=== PATIENT | female | born 1945 | race Caucasian/White ===

== ENCOUNTER → 2016-08-03 | Outpatient (REF) | payer MEDICARE, OTHER ==
[~2016-08-03] MED LIST: /SUCR1TA OR; ACET-654 PO; ACET50TAOT PO; ASPI1TAB PO; ASPI325T; ASPI325T PO; ASPI81CH PO; ASPI81TA45 OR; ATEN25TA PO; BISAC5TA PO; CALC600T21 PO; CALCTAB22 OR; CRES20TA PO; DARV100T; DOCU10ELUD PO; FISH1000 OR; FISH300C PO; GABA-279 PO; KEPP500T4 PO; KEPP500T5 PO; LEVO25TA5 PO; LEVO25TABR OR; LIDO5DIS36 TD; MELATONIN PO; NORV5TAB PO; OMEG100011 PO; OMEP20TA7 OR; PRED5TAB; PRIL20CA; REGLAN PO; SYNT25TA PO; TEMOVATE TOP; VESI10TA PO; VIACCHW PO; VIACTIVE PO; VICO5TAB OR; VIT A; VIT D 2000 PO; VITA200016 PO; VITA500019 PO; VITAMIN D50000 UNT; VOLT1GEL24 TD; Vesicare PO; ZETI10TA2 PO; ZOFR8TAB OR; [UNRECOGNIZED DRUG - CODE] TOP
[2016-08-03 12:16] LABS: MEAN CORPUSCULAR HEMOGLOBIN 29.4 pg (27.0-33.0); MEAN CORPUSCULAR VOLUME 89.2 fl (80.0-96.0); RED CELL DISTRIBUTION WIDTH 12.3 % (11.5-14.5); WHITE BLOOD COUNT 3.9 K/mm3 (4.0-10.0)
[2016-08-03 12:30] LABS: ALBUMIN/GLOBULIN RATIO 1.43 (1.00-1.93); BILIRUBIN,TOTAL 0.8 MG/DL (0.2-1.0); CALCIUM LEVEL 9.3 MG/DL (8.8-10.2); CREATININE FOR GFR 1.08 MG/DL (0.55-1.02); GLOMERULAR FILTRATION RATE 53.2 (>39); POTASSIUM SERUM 4.5 MEQ/L (3.5-5.1); TOTAL PROTEIN 6.8 GM/DL (6.4-8.2)
== END ==
LOC: M SFHCLERA 08:55
PROVIDERS: ATTEND Family Medicine
DX: I10 Essential (primary) hypertension (principal); M60.9 Myositis, unspecified; E78.2 Mixed hyperlipidemia; E03.9 Hypothyroidism, unspecified
CPT/HCPCS: 80053; 80061; 82550; 84443; 85027; G0463

== ENCOUNTER → 2016-09-28 | Outpatient (REF) | payer MEDICARE, OTHER ==
[~2016-09-28] MED LIST changes: +TEMO0.0520 TOP; -[UNRECOGNIZED DRUG - CODE] TOP
[2016-09-28 17:15] LABS: MEAN CORPUSCULAR HEMOGLOBIN 29.5 pg (27.0-33.0); MEAN CORPUSCULAR HGB CONC 33.1 g/dl (32.0-36.5); MEAN CORPUSCULAR VOLUME 89.1 fl (80.0-96.0); RED CELL DISTRIBUTION WIDTH 12.5 % (11.5-14.5); WHITE BLOOD COUNT 4.1 K/mm3 (4.0-10.0)
[2016-09-28 17:44] LABS: CALCIUM LEVEL 8.6 MG/DL (8.8-10.2); CREATININE FOR GFR 1.1 MG/DL (0.55-1.02); GLOMERULAR FILTRATION RATE 52.1 (>39); POTASSIUM SERUM 4.3 MEQ/L (3.5-5.1)
== END ==
LOC: M SFHCLERA 11:47
PROVIDERS: ATTEND Family Medicine
DX: R25.2 Cramp and spasm (principal)
CPT/HCPCS: 80048; 82550; 83735; 85027; G0463

== ENCOUNTER → 2016-10-20 | Outpatient (REF) | payer MEDICARE, OTHER | LOC: M SFHCLERA 10:34 | PROVIDERS: ATTEND Nurse Practitioner Family | DX: J06.9 Acute upper respiratory infection, unspecified (principal) ==

== ENCOUNTER 2017-03-20 04:14 | Emergency (ER) | payer MEDICARE, OTHER ==
[~2017-03-20] VITALS: Ht 165.1 cm; Wt 63.6 kg
[~2017-03-20 04:14] MED LIST changes: -CALC600T21 PO; +CALC600T60 PO; +KEPP500T13 PO; -KEPP500T5 PO; -LIDO5DIS36 TD; +LIDO5DIS41 TD; +VOLT1GEL15 TD; -VOLT1GEL24 TD; -ZETI10TA2 PO; +ZETI10TA30 PO
[2017-03-20] MEDS ORDERED: RAMI5CA PO (04:33)
[2017-03-20] MEDS ORDERED: BENZ100C5 PO (04:33)
[2017-03-20] MEDS ORDERED: CLOP75TA2 PO (04:33)
[2017-03-20] MEDS ORDERED: ZYRT10TA2 PO (04:33)
[2017-03-20 05:41] LABS: BASO % 0.2 % (0.0-1.0); EOS # 0.1 10^3/uL (0.0-0.50); EOS % 0.9 % (0.0-3.0); IMMATURE GRANULOCYTE % 0.4 % (0-0); LYMPH # 0.7 10^3/uL (1.5-4.5); LYMPH % 5.9 % (24.0-44.0); MEAN CORPUSCULAR HEMOGLOBIN 29.5 pg (27.0-33.0); MEAN CORPUSCULAR HGB CONC 33.3 g/dl (32.0-36.5); MEAN CORPUSCULAR VOLUME 88.6 fl (80.0-96.0); MONO # 0.9 10^3/uL (0.0-0.8); MONO % 7.4 % (0.0-5.0); NEUTROPHILS # 9.8 10^3/uL (1.8-7.7); NEUTROPHILS % 85.2 % (36.0-66.0); PLATELET COUNT, AUTOMATED 167 10^3/uL (150-450); WHITE BLOOD COUNT 11.5 10^3/uL (4.0-10.0)
[2017-03-20] MEDS ORDERED: NS 1,000 ML IV ONE (05:45)
[2017-03-20 05:54] LABS: ALBUMIN 3.9 GM/DL (3.2-5.2); ALBUMIN/GLOBULIN RATIO 1.05 (1.00-1.93); BILIRUBIN,DIRECT 0.1 MG/DL (0.0-0.2); BILIRUBIN,TOTAL 0.7 MG/DL (0.2-1.0); CALCIUM LEVEL 9.3 MG/DL (8.8-10.2); CREATININE FOR GFR 1.19 MG/DL (0.55-1.02); GLOMERULAR FILTRATION RATE 47.5 (>39); POTASSIUM SERUM 3.8 MEQ/L (3.5-5.1); TOTAL PROTEIN 7.6 GM/DL (6.4-8.2)
[2017-03-20] MEDS ORDERED: BUPIVACAINE HCL 0.5% 10 ML VIAL SC ONE (06:30)
[2017-03-20] MEDS ORDERED: LIDOCAINE W/EPINEPHRINE 1% 20ML VIAL SC ONE (06:30)
[2017-03-20 07:26] VITALS: BP 119/55
--- NOTE | 2017-03-20 11:41 | REP ---
REASON: Pain after trauma. There is no AC joint comparison, however, portable examination of the chest of 05/02/2015, which showed the AC joint was reviewed. The AC joint is widened compared to the prior exam consistent with an AC joint separation possibly grade 2. This needs to be correlated clinically. There is no evidence of an acute fracture. The glenohumeral relationship is within normal limits. IMPRESSION: AC joint as described above. Signed by Jeremiah Barrios DO 03/20/2017 10:19 A
== END 2017-03-20 07:41 | disposition home or self-care (01) ==
LOC: EDBD 04:14 → M ED 04:14
DX: R55 Syncope and collapse (principal); R19.7 Diarrhea, unspecified; S01.91XA Laceration without foreign body of unspecified part of head, initial encounter; W19.XXXA Unspecified fall, initial encounter; Y92.099 Unspecified place in other non-institutional residence as the place of occurrence of the external cause; Y93.01 Activity, walking, marching and hiking; Y99.9 Unspecified external cause status; Z79.82 Long term (current) use of aspirin; Z79.899 Other long term (current) drug therapy; Z88.2 Allergy status to sulfonamides; Z88.8 Allergy status to other drugs, medicaments and biological substances; Z88.6 Allergy status to analgesic agent; Z88.5 Allergy status to narcotic agent

== ENCOUNTER → 2017-03-21 | Outpatient (REF) | payer MEDICARE, OTHER ==
[~2017-03-21] MED LIST changes: +BENZ100C5 PO; +CLOP75TA2 PO; +RAMI5CA PO; +ZYRT10TA2 PO
[2017-03-21 12:33] LABS: AMYLASE 59 U/L (25-115)
== END ==
LOC: M SFHCLERA 09:55
PROVIDERS: ATTEND Family Medicine
DX: R74.8 Abnormal levels of other serum enzymes (principal)
CPT/HCPCS: 82150; 83690; G0463

== ENCOUNTER → 2017-05-19 | Outpatient (REF) | payer MEDICARE, OTHER ==
[2017-05-19 14:22] LABS: CREATININE FOR GFR 1.07 MG/DL (0.55-1.02); FREE T4 0.99 NG/DL (0.76-1.46); GLOMERULAR FILTRATION RATE 53.7 (>39); POTASSIUM SERUM 4.5 MEQ/L (3.5-5.1)
== END ==
LOC: M SFHCLERA 09:05
PROVIDERS: ATTEND Family Medicine
DX: I12.9 Hypertensive chronic kidney disease with stage 1 through stage 4 chronic kidney disease, or unspecified chronic kidney disease (principal); N18.3 Chronic kidney disease, stage 3 (moderate)
CPT/HCPCS: 80048; 84439; 84443; G0463

== ENCOUNTER → 2017-07-04 | Outpatient (CLI) | payer MEDICARE, OTHER | LOC: M WHC 09:30 | DX: M81.0 Age-related osteoporosis without current pathological fracture (principal) | CPT/HCPCS: 77080 ==

== ENCOUNTER → 2017-12-29 | Outpatient (CLI) | payer MEDICARE, OTHER | LOC: M LRY 09:49 | DX: I10 Essential (primary) hypertension (principal); Z96.652 Presence of left artificial knee joint | CPT/HCPCS: 73590; 84443 ==

== ENCOUNTER → 2017-12-29 | Outpatient (REF) | payer MEDICARE, OTHER ==
[2017-12-29 12:54] LABS: ANION GAP 9 MEQ/L (8-16); BLOOD UREA NITROGEN 16 MG/DL (7-18); CALCIUM LEVEL 9.2 MG/DL (8.8-10.2); CARBON DIOXIDE LEVEL 28 MEQ/L (21-32); CHLORIDE LEVEL 106 MEQ/L (98-107); CREATININE FOR GFR 1.13 MG/DL (0.55-1.30); GLOMERULAR FILTRATION RATE 50.2 (>39); GLUCOSE, FASTING 83 MG/DL (70-100); POTASSIUM SERUM 4.6 MEQ/L (3.5-5.1); SODIUM LEVEL 143 MEQ/L (136-145)
== END ==
LOC: M SFHCLERA 10:05
DX: E03.9 Hypothyroidism, unspecified (principal); I10 Essential (primary) hypertension
CPT/HCPCS: 84443

== ENCOUNTER → 2018-07-04 | Outpatient (REF) | payer MEDICARE, OTHER ==
[~2018-07-04] MED LIST changes: +ACET500T15 PO; -ACET50TAOT PO; +BENZ-18 PO; -BENZ100C5 PO; +GABA-1171 PO; -GABA-279 PO; +RAMI1CAP24 PO; -RAMI5CA PO; +ZYRT10CA5 PO; -ZYRT10TA2 PO
[2018-07-04 11:28] LABS: BASO % 0.5 % (0.0-1.0); EOS # 0.1 10^3/uL (0.0-0.50); EOS % 1.2 % (0.0-3.0); HEMATOCRIT 37.7 % (36.0-47.0); HEMOGLOBIN 12.7 g/dl (12.0-15.5); LYMPH # 1.1 10^3/uL (1.5-4.5); LYMPH % 25.8 % (24.0-44.0); MEAN CORPUSCULAR HEMOGLOBIN 30.1 pg (27.0-33.0); MEAN CORPUSCULAR HGB CONC 33.7 g/dl (32.0-36.5); MEAN CORPUSCULAR VOLUME 89.3 fl (80.0-96.0); MONO # 0.5 10^3/uL (0.0-0.8); MONO % 10.6 % (0.0-5.0); NEUTROPHILS # 2.6 10^3/uL (1.8-7.7); NEUTROPHILS % 61.7 % (36.0-66.0); PLATELET COUNT, AUTOMATED 167 10^3/uL (150-450); RED BLOOD COUNT 4.22 10^6/uL (4.00-5.40); WHITE BLOOD COUNT 4.3 10^3/uL (4.0-10.0)
[2018-07-04 11:55] LABS: HEMOGLOBIN A1c 5.4 %
[2018-07-04 12:05] LABS: CALCIUM LEVEL 9.3 MG/DL (8.8-10.2); CREATININE FOR GFR 1.04 MG/DL (0.55-1.30); GLOMERULAR FILTRATION RATE 55.3 (>39); POTASSIUM SERUM 4.2 MEQ/L (3.5-5.1)
[2018-07-04 12:06] LABS: CHOLESTEROL RISK RATIO 3.029 (<5); THYROID STIMULATING HORMONE 1.32 uIU/ML (0.358-3.740)
== END ==
LOC: M SFHCLERA 09:31
PROVIDERS: ATTEND Family Medicine
DX: E78.5 Hyperlipidemia, unspecified (principal); E03.9 Hypothyroidism, unspecified; I10 Essential (primary) hypertension
CPT/HCPCS: 80048; 80061; 83036; 84443; 85025; 90732; G0009; G0463

== ENCOUNTER → 2018-09-08 | Outpatient (CLI) | payer MEDICARE, OTHER ==
--- NOTE | 2018-09-08 17:45 | REP ---
Clinical: Pain and instability. Technique: AP, lateral, bilateral oblique and sunrise views of the right knee. Findings: Moderate/early advanced tricompartmental osteoarthritic degenerative changes are appreciated. Findings include osteophytosis, joint space narrowing, subchondral sclerosis, and mild chondrocalcinosis. No acute fracture dislocation. No effusion. Impression: Moderate/early advanced tricompartmental degenerative changes. Electronically Signed by Rajendra Raymundo MD 09/08/2018 05:37 P
== END ==
LOC: M LRY 17:15
PROVIDERS: ATTEND Physician Assistant
DX: M17.11 Unilateral primary osteoarthritis, right knee (principal); M11.261 Other chondrocalcinosis, right knee; M25.361 Other instability, right knee

== ENCOUNTER → 2018-11-23 | Outpatient (CLI) | payer MEDICARE, OTHER ==
[~2018-11-23] MED LIST changes: -/SUCR1TA OR; +ASPI-1 PO; -ASPI1TAB PO; -ASPI325T PO; +ASPI81TA26 PO; -DOCU10ELUD PO; +DOCU5LIQ PO; +ONDA-227 OR; +SUCR1TAB56 OR; -ZOFR8TAB OR
--- NOTE | 2018-11-23 15:01 | REPMRS ---
Patient History The patient states she has not had a clinical breast exam in over a year. Family history of prostate cancer at age 50 or over in paternal uncle, premenopausal breast cancer at age 50 or over in sister, colorectal cancer under age 50 in paternal cousin, colorectal cancer at age 50 or over in paternal cousin. Benign lumpectomy of the right breast. Digital Woman Screen Mammo: November 23, 2018 - Exam #: [id number] Bilateral CC and MLO view(s) were taken. Technologist: Marivel Campuzano, Technologist Prior study comparison: April 29, 2016, digital woman screen mammo performed at [facility]. April 16, 2015, digital bilateral screening mammo, performed at [facility]. April 10, 2014, digital woman screen mammo performed at [facility]. FINDINGS: There are scattered fibroglandular densities. There is a moderate amount of residual fibroglandular tissue which is fairly symmetric. There is no interval development of dominant mass, architectural distortion, or clustered microcalcification typical of malignancy. There has been no change in the appearance of the mammogram from the prior studies. 3-D tomosynthesis shows no additional findings. Assessment: BI-RADS/ACR category 1 mammogram. Negative Mammogram. Recommendation Routine screening mammogram of both breasts in 1 year (for women over age 40). This patient's Lifetime Breast Cancer RIsk is estimated at 4.2 %. This mammogram was interpreted with the aid of an FDA-approved computer-aided dectection system. Electronically Signed By: Daniel Dubon MD 11/23/18 [id number]
== END ==
LOC: M WHC 07:47
PROVIDERS: ATTEND Family Medicine
DX: Z12.31 Encounter for screening mammogram for malignant neoplasm of breast (principal)

== ENCOUNTER → 2019-01-01 | Outpatient (REF) | payer MEDICARE, OTHER ==
[2019-01-01 12:29] LABS: CALCIUM LEVEL 9.5 MG/DL (8.8-10.2); CREATININE FOR GFR 1.1 MG/DL (0.55-1.30); GLOMERULAR FILTRATION RATE 51.7 (>39); POTASSIUM SERUM 4.2 MEQ/L (3.5-5.1); THYROID STIMULATING HORMONE 1.56 uIU/ML (0.358-3.740)
== END ==
LOC: M SFHCLERA 09:59
PROVIDERS: ATTEND Family Medicine
DX: E03.9 Hypothyroidism, unspecified (principal); I10 Essential (primary) hypertension
CPT/HCPCS: 80048; 84443; G0463

== ENCOUNTER → 2019-06-07 | Outpatient (REF) | payer MEDICARE, OTHER ==
[~2019-06-07] MED LIST changes: +ZETI10TA16 PO; -ZETI10TA30 PO
[2019-06-07 12:42] LABS: BASO % 0.3 % (0.0-1.0); HEMATOCRIT 41.2 % (36.0-47.0); HEMOGLOBIN 13.5 g/dl (12.0-15.5); LYMPH # 0.8 10^3/uL (1.5-5.0); LYMPH % 25.6 % (24.0-44.0); MEAN CORPUSCULAR HEMOGLOBIN 29.3 pg (27.0-33.0); MEAN CORPUSCULAR HGB CONC 32.8 g/dl (32.0-36.5); MEAN CORPUSCULAR VOLUME 89.6 fl (80.0-96.0); MONO # 0.5 10^3/uL (0.0-0.8); NEUTROPHILS # 1.8 10^3/uL (1.5-8.5); NEUTROPHILS % 57.1 % (36.0-66.0); PLATELET COUNT, AUTOMATED 149 10^3/uL (150-450); WHITE BLOOD COUNT 3.1 10^3/uL (4.0-10.0)
[2019-06-07 13:11] LABS: CALCIUM LEVEL 9.4 MG/DL (8.8-10.2); CREATININE FOR GFR 1.1 MG/DL (0.55-1.30); GLOMERULAR FILTRATION RATE 51.7 (>39); POTASSIUM SERUM 4.7 MEQ/L (3.5-5.1)
== END ==
LOC: M SFHCLERA 10:42
PROVIDERS: ATTEND Family Medicine
DX: K52.9 Noninfective gastroenteritis and colitis, unspecified (principal)
CPT/HCPCS: 80048; 85025; 87507; G0463

== ENCOUNTER → 2019-06-27 | Outpatient (CLI) | payer MEDICARE, OTHER ==
--- NOTE | 2019-06-27 14:34 | REP ---
RIGHT HIP, TWO VIEWS: Two views of the right hip are performed. There is no acute fracture or dislocation. Moderate arthritic changes are seen with diffuse moderate joint space narrowing, subchondral sclerosis and spurring. IMPRESSION: Moderate arthritic changes. Electronically Signed by Sraan Zhao MD 06/27/2019 05:39 P
== END ==
LOC: M LRY 12:26
PROVIDERS: ATTEND Family Medicine
DX: M16.11 Unilateral primary osteoarthritis, right hip (principal); R10.31 Right lower quadrant pain

== ENCOUNTER → 2019-07-18 | Outpatient (REF) | payer MEDICARE, OTHER ==
[2019-07-18 12:16] LABS: BASO % 0.7 % (0.0-1.0); EOS # 0.1 10^3/uL (0.0-0.5); EOS % 1.5 % (0.0-3.0); HEMATOCRIT 36.9 % (36.0-47.0); HEMOGLOBIN 12.2 g/dl (12.0-15.5); LYMPH # 1.1 10^3/uL (1.5-5.0); LYMPH % 27.7 % (24.0-44.0); MEAN CORPUSCULAR HGB CONC 33.1 g/dl (32.0-36.5); MEAN CORPUSCULAR VOLUME 90.7 fl (80.0-96.0); MONO # 0.4 10^3/uL (0.0-0.8); NEUTROPHILS # 2.4 10^3/uL (1.5-8.5); NEUTROPHILS % 59.9 % (36.0-66.0); PLATELET COUNT, AUTOMATED 181 10^3/uL (150-450); RED BLOOD COUNT 4.07 10^6/uL (4.00-5.40); WHITE BLOOD COUNT 4.1 10^3/uL (4.0-10.0)
[2019-07-18 12:30] LABS: ALBUMIN 3.8 GM/DL (3.2-5.2); BILIRUBIN,TOTAL 0.8 MG/DL (0.2-1.0); CALCIUM LEVEL 9.4 MG/DL (8.8-10.2); CREATININE FOR GFR 1.15 MG/DL (0.55-1.30); GLOMERULAR FILTRATION RATE 49.1 (>39); POTASSIUM SERUM 4.6 MEQ/L (3.5-5.1); THYROID STIMULATING HORMONE 1.91 uIU/ML (0.358-3.740); TOTAL PROTEIN 6.6 GM/DL (6.4-8.2)
== END ==
LOC: M SFHCLERA 07:49
PROVIDERS: ATTEND Family Medicine
DX: I10 Essential (primary) hypertension (principal); E03.9 Hypothyroidism, unspecified

== ENCOUNTER → 2019-12-04 | Outpatient (CLI) | payer MEDICARE, OTHER ==
[~2019-12-04] MED LIST changes: +ASPI81TA85 PO; +D 50CAP2 PO; +MS C15TA8 PO; +ONDA-83 PO; +PERC5TAB12 PO; +TESS100C PO; +VITATAB73 PO; +ZYRTTAB8 PO
[2019-12-04 11:27] LABS: BASO % 0.5 % (0.0-1.0); EOS % 0.5 % (0.0-3.0); HEMATOCRIT 39.3 % (36.0-47.0); LYMPH % 24.4 % (24.0-44.0); MEAN CORPUSCULAR HEMOGLOBIN 29.3 pg (27.0-33.0); MEAN CORPUSCULAR HGB CONC 33.1 g/dl (32.0-36.5); MEAN CORPUSCULAR VOLUME 88.7 fl (80.0-96.0); MONO # 0.4 10^3/uL (0.0-0.8); NEUTROPHILS # 2.7 10^3/uL (1.5-8.5); NEUTROPHILS % 65.6 % (36.0-66.0); PLATELET COUNT, AUTOMATED 191 10^3/uL (150-450); RED BLOOD COUNT 4.43 10^6/uL (4.00-5.40); WHITE BLOOD COUNT 4.1 10^3/uL (4.0-10.0)
[2019-12-04 11:45] LABS: INR 0.95; PROTHROMBIN TIME 12.4 SECONDS (11.8-14.0)
[2019-12-04 11:58] LABS: ALBUMIN 4.1 GM/DL (3.2-5.2); CALCIUM LEVEL 10.4 MG/DL (8.8-10.2); CREATININE FOR GFR 1.12 MG/DL (0.55-1.30); GLOMERULAR FILTRATION RATE 50.5 (>39); POTASSIUM SERUM 3.9 MEQ/L (3.5-5.1); TOTAL PROTEIN 7.7 GM/DL (6.4-8.2)
[2019-12-04 11:59] LABS: ERYTHROCYTE SEDIMENTATION RATE 9 mm/hr (0-30)
--- NOTE | 2019-12-04 14:44 | REP ---
REASON: Preoperative evaluation. The latest prior for comparison is a single view of the chest obtained 05/02/2015 portably. FINDINGS: The superior mediastinal structures are midline. The cardiac silhouette is unremarkable in size, shape, and position. The diaphragmatic surfaces of the lungs are regular, and the costophrenic angles are clear. The pulmonary valadez are clear. The imaged osseous structures are intact. IMPRESSION: There is no acute cardiopulmonary disease. Electronically Signed by Jeremiah Barrios DO 12/04/2019 05:27 P
== END ==
LOC: M LAB 10:31
PROVIDERS: ATTEND Family Medicine
DX: Z01.818 Encounter for other preprocedural examination (principal); M17.11 Unilateral primary osteoarthritis, right knee; Z79.01 Long term (current) use of anticoagulants
CPT/HCPCS: 36415; 71046; 80053; 85025; 85610; 85652; 93005; G0463

== ENCOUNTER → 2019-12-16 | Outpatient (CLI) | payer MEDICARE, OTHER ==
[~2019-12-16] MED LIST changes: -ASPI81TA85 PO; +ASPI81TA86 PO
== END ==
LOC: M LABSMTC 10:39
PROVIDERS: ATTEND Anesthesiology
DX: Z01.818 Encounter for other preprocedural examination (principal); Z11.59 Encounter for screening for other viral diseases

== ENCOUNTER 2019-12-19 10:33 | Inpatient (IN) | payer MEDICARE, OTHER ==
--- NOTE | 2019-12-11 17:14 | HPE ---
DATE OF ANTICIPATED ADMISSION: 12/19/2019 ATTENDING PHYSICIAN: Dr. Santosh Tolbert CHIEF COMPLAINT: Right knee pain and stiffness. HISTORY: The patient is a pleasant 74-year-old female with progressively worsening right knee pain and stiffness. She failed to improve with conservative measures. She continues to have symptoms with weightbearing activities and activities of daily living. She has consented for an elective right total knee arthroplasty with Dr. Tolbert for her continued symptoms. Medical optimization pending with Dr. Briscoe. CURRENT MEDICATIONS: - amlodipine 5 mg daily - aspirin 81 mg daily - Zyrtec 10 mg daily - Plavix 75 mg daily - ramipril 5 mg daily - Synthroid 25 mcg daily - Tylenol 500 mg daily - vitamin D 2000 units twice daily - Voltaren gel as needed - Zetia 10 mg daily - Zofran 4 mg every 8 hours as needed for nausea - Keppra 500 mg twice daily - calcium with vitamin D - heartburn relief medication ALLERGIES: CELEBREX, FLEXERIL, IBUPROFEN, SULFA DRUGS, TRAMADOL, VIOXX, CRESTOR, PRAVASTATIN, PLAQUENIL, ACTONEL. CHRONIC MEDICAL CONDITIONS: Hypertension. Hyperlipidemia. Hypothyroid. Gastroesophageal reflux disease. Seasonal allergies. Seizures. Heart disease. PAST SURGICAL HISTORY: Tubal ligation. Heart catheterization. Left total knee arthroplasty. Right knee arthroscopy. Cholecystectomy. Colonoscopy. SOCIAL HISTORY: The patient is a former smoker and quit greater than 20 years ago. She denies any alcohol use. REVIEW OF SYSTEMS: The patient denies fevers, chills, nausea, vomiting, or diarrhea. She denies chest pain, shortness of breath, lightheadedness, dizziness, or headaches. She denies any recent upper respiratory or urinary tract infection symptoms. She denies any abdominal pain. She does continue to have right knee pain with weightbearing activities and activities of daily living. PHYSICAL EXAM: General: Well-nourished, well-developed female in no apparent distress. She is alert, oriented, and cooperative. Mood and affect are appropriate. Vital signs: Height 65 inches, weight 134 pounds, temperature 98.2, heart rate 64, respirations 14, blood pressure 116/60. Neck: Supple without lymphadenopathy. Heart: Regular rate and rhythm. Lungs: Clear to auscultation bilaterally. Abdomen: Soft and nontender to palpation. Bowel sounds are present. Musculoskeletal: Right knee exhibits no erythema, edema, or ecchymosis. Skin is intact. She can extend knee to 2 degrees and flex to 120 degrees. Right lower extremity strength is 5/5. No hip irritability elicited with range of motion testing. The patient's calf is soft, nontender to palpation with no palpable cords noted. She is neurovascularly intact distally. LABORATORY DATA: Chest x-ray: No acute cardiopulmonary disease. Right knee x-ray: Notable for end-stage degenerative changes. Comprehensive metabolic profile: Fasting glucose elevated at 102, BUN 16, creatinine 1.12, GFR 50.2, sodium 138, potassium 3.9, chloride 105, carbon dioxide 29, anion gap decreased at 4, calcium elevated at 10.4, AST 23, ALT 20, alkaline phosphatase 83, total bilirubin 1, total protein 7.7, albumin 4.1, albumin-globulin ratio decreased at 1.1. Prothrombin time 12.4, INR 0.95. Complete blood count: WBC is 4.1, RBCs 4.43, hemoglobin 13, hematocrit 39.3, platelets 191, erythrocyte sedimentation rate is 9. IMPRESSION: Right knee degenerative arthritis with x-rays notable for end-stage degenerative changes. PLAN: The patient has consented for an elective right total knee arthroplasty with Dr. Tolbert for her continued symptoms. Medical optimization pending with Dr. Briscoe. The patient will start using her Bactroban and Hibiclens 5 days prior to surgery as directed. She will call [facility] the day before her surgery to get a report time. She will follow her primary child care leader's recommendations for taking daily medications and when to stop anticoagulants. The patient will be nothing by mouth after midnight prior to surgery and was directed to take a medication by her primary child care leader with a small sip of water the morning of.
[~2019-12-19] VITALS: Ht 162.6 cm; Wt 62.1 kg
[2019-12-19] MEDS: amLODIPine 5 MG TAB PO SCH (09:00)
[~2019-12-19 10:33] MED LIST changes: +ACETAMINOPHEN 500 MG TAB PO ONE; +ASPI81TA85 PO; -ASPI81TA86 PO; +LIDOCAINE 1% MDV 20ML VIAL SQ PRN; +LR 1,000 ML IV ONE; +MIDAZOLAM INJ 2MG/2ML VIAL (J2250 PER 1MG) IV SCH; -MS C15TA8 PO; -PERC5TAB12 PO; +ceFAZolin SOD 2 GM in IV 1 EA IV ONE
[2019-12-19] MEDS ORDERED: propofoL 500 MG/50 ML VIAL As Ordered ONE (13:22)
[2019-12-19] MEDS ORDERED: LIDOCAINE 2% 100MG/5ML SDV (FOR ANES.) As Ordered ONE (13:23)
[2019-12-19] MEDS ORDERED: fentaNYL 100 MCG/2 ML INJECTION (J3010) As Ordered ONE (13:57)
[2019-12-19] MEDS ORDERED: ceFAZolin 1GM VIAL (J0690 PER 500MG) As Ordered ONE (13:57)
[2019-12-19] MEDS ORDERED: MIDAZOLAM INJ 2MG/2ML VIAL (J2250 PER 1MG) As Ordered ONE (13:57)
[2019-12-19] MEDS ORDERED: EPINEPHrine INJ 1 MG/ML 1ML AMP As Ordered ONE (13:58)
[2019-12-19] MEDS ORDERED: BUPIVACAINE LIPOSOME/PF 1.3% 20ML VIAL (13.3MG/ML)(EXPAREL)(C9290 PER1MG) As Ordered ONE (13:58)
[2019-12-19] MEDS ORDERED: TRANEXAMIC ACID 100 MG/ML 10ML VIAL As Ordered ONE (13:58)
[2019-12-19] MEDS ORDERED: BUPIVACAINE HCL 0.25% 10ML VIAL As Ordered ONE (13:58)
[2019-12-19] MEDS: fentaNYL 100 MCG/2 ML INJECTION (J3010) IV SCH ×2 (14:17→14:21)
--- NOTE | 2019-12-19 15:25 | CR.PDOC ---
General Date of Consultation: Dec 19, 2019 Consultation REASON FOR CONSULTATION/CHIEF COMPLAINT: Who presented to [facility] for an elective orthopedic procedure. Medical management HISTORY OF PRESENT ILLNESS: Patient is a 74 year old female with a PMHx of HTN, DLP, Hypothyroidism, Seasonal allergies, Seizures History, GERD who presented to [facility] for an elective orthopedic procedure. Patient received medical clearance from Dr. Briscoe, primary care provider. Patient was seen pre-operatively. She does not experience any headache, nausea, vomiting, chest pain, SOB, palpitations, abdominal pain, constipation, diarrhea or urinary discomfort. Has not experienced any recent fevers / chills. Reports no changes in appetite / weight. ALLERGIES: Please see below. HOME MEDICATIONS: Please see below. PAST MEDICAL HISTORY: HTN, DLP, Hypothyroidism, Seasonal allergies, Seizures History, GERD PAST SURGICAL HISTORY: Tubal ligation Heart catheterization (2002) Left total knee arthroplasty (2007) Cholecystectomy Colonoscopy x2 FAMILY HISTORY: - Family history reviewed and non-contributory to this this hospitalization SOCIAL HISTORY: - Denies the use of alcohol or illicit drugs; reports she quit smoking 20 years ago - Denies recent travel or sick contacts - Lives with daughter - Occupation; [employer] REVIEW OF SYSTEMS: 10 point review of systems complete, all negative otherwise stated in HPI PHYSICAL EXAMINATION: - Vitals: BP 133/63, HR 77, RR 18, Sat 100%NC2L, Temp 97.1F - General: Lying in bed, Appears comfortable, AAOx3 - HEENT: NC, AT, PERRLA, EOMI - CVS: RRR, +S1S2 - Lungs: Fair air entry bilaterally, No appreciable wheezing / rales / rhonchi - Abdomen: Soft, Non-distended, Non-tender - Extremities: No lower extremity edema, No calf tenderness - Neuro: No focal motor or sensory deficit - Skin: No visible rashes LABORATORY DATA: Please see below. ASSESSMENT/PLAN: Elective right knee arthroplasty - Patient has presented to [facility] for an elective procedure with orthopedic surgery - Has received outpatient medical clearance from primary care provider - Pain control, anticoagulation, and physical therapy at the direction of physical therapy HTN - BP controlled - Will resume amlodipine and Ramipril with holding parameters DLP - c/w Ezetimibe Hypothyroidism - c/w Levothyroxine Seasonal allergies - c/w Cetirizine PRN Seizures History - Patient reports last seizure was 2013 - c/w Keppra OA / Neuropathy - c/w Gabapentin GERD - Patient takes calcium carbonate PRN DVT prophylaxis - Will c/w anticoagulation as per orthopedic surgery Vital Signs/I&O Vital Signs Date Time Temp Pulse Resp B/P (MAP) Pulse Ox O2 Delivery O2 Flow Rate FiO2 12/19/19 14:30 77 18 133/63 (86) 100 Nasal Cannula 3 12/19/19 11:26 97.1 Allergies Coded Allergies: Sulfa (Sulfonamide Antibiotics) (Verified Allergy, Intermediate, rash, 12/19/19) hydroxychloroquine (Verified Allergy, Unknown, 12/19/19) rosuvastatin (Verified Allergy, Unknown, 12/19/19) celecoxib (Verified Adverse Reaction, Intermediate, increased BP, 12/19/19) cyclobenzaprine (Verified Adverse Reaction, Intermediate, seizure, 12/19/19) ibuprofen (Verified Adverse Reaction, Intermediate, palpitations, 12/19/19) risedronate sodium (Verified Adverse Reaction, Intermediate, severe leg pain, 12/19/19) rofecoxib (Verified Adverse Reaction, Intermediate, increased BP, 12/19/19) tramadol (Verified Adverse Reaction, Intermediate, seizure, 12/19/19) Home Medications Scheduled Amlodipine Besylate (Norvasc) 5 Mg Tab, 5 MG PO DAILY, (Reported) Aspirin (Aspir 81) 81 Mg Tablet.dr, 81 MG PO DAILY, #30 (Reported) Calcium Carbonate (Calcium) 600 Mg Tab, 600 MG PO DAILY, (Reported) Cholecalciferol (Vitamin D3) (Vitamin D3) 125 Mcg Capsule, 125 MCG PO DAILY, (Re ported) Clopidogrel Bisulfate (Clopidogrel) 75 Mg Tab, 75 MG PO DAILY, (Reported) Ezetimibe (Zetia) 10 Mg Tab, 10 MG PO QPM, (Reported) Levetiracetam (Keppra Xr) 500 Mg Tab, 500 MG PO BID, (Reported) Levothyroxine Sodium (Levothyroxine Sodium) 25 Mcg Tab, 25 MCG PO QAM, (Reported) Ramipril (Ramipril) 5 Mg Cap, 5 MG PO DAILY, (Reported) Vitamin B Complex (Vitamin B Complex) 1 Each Tablet, 1 TAB PO DAILY, (Reported) Scheduled PRN Acetaminophen (Acetaminophen) 500 Mg Tab, 500 MG PO for PAIN, (Reported) Cetirizine HCl/Pseudoephedrine (Zyrtec-D Tablet) 1 Each Tab.er.12h, 1 TAB PO for CONGESTION, (Reported) Gabapentin (Gabapentin) 100 Mg Cap, 100 MG PO TID PRN for PAIN, (Reported) Ondansetron HCl (Ondansetron HCl) 4 Mg Tablet, 4 MG PO Q4H PRN for NAUSEA OR VOMITING for 5 Days, #30 (Reported) JEFFREY DENT MD Dec 19, 2019 15:25
[2019-12-19] MEDS ORDERED: ACETAMINOPHEN 1000MG 100ML IV BTL (OFIRMEV) (J0131 PER 10MG) As Ordered ONE (16:17)
[2019-12-19] MEDS ORDERED: ONDANSETRON 4MG/2ML VIAL As Ordered ONE (16:17)
[2019-12-19] MEDS ORDERED: KETOROLAC 60MG 2ML VIAL As Ordered ONE (16:17)
[2019-12-19] MEDS ORDERED: LR 1,000 ML IV SCH ×2 (18:00)
[2019-12-19] MEDS ORDERED: MORPHINE 2 MG/ML 1ML VIAL (J2270) IV PRN (18:00)
[2019-12-19] MEDS ORDERED: ONDANSETRON 4MG/2ML VIAL IV PRN ×2 (18:00)
[2019-12-19] MEDS ORDERED: oxyCODONE 5MG TAB PO PRN (18:00)
[2019-12-19] MEDS ORDERED: METOCLOPRAMIDE INJ 10MG/2ML VIAL (J2765 PER 1) IV PRN (18:00)
[2019-12-19] MEDS ORDERED: ACETAMINOPHEN TAB 650MG DOSE (2X325MG) PO PRN (18:00)
[2019-12-19] MEDS ORDERED: fentaNYL 100 MCG/2 ML INJECTION (J3010) IV PRN (18:00)
[2019-12-19] MEDS ORDERED: PERCOCET 5MG/325MG TAB PO PRN (18:00)
[2019-12-19] MEDS ORDERED: ROPIvacaine 0.5% 30ML INJECTION (J2795 PER 1MG) ONE ×2 (19:19→19:24)
[2019-12-19] MEDS ORDERED: EPINEPHrine INJ 1 MG/ML 1ML AMP ONE ×2 (19:19→19:24)
[2019-12-19] MEDS ORDERED: dexameTHASONE 10MG/1ML VIAL PRES.FREE (J1100 PER 1MG) ONE ×2 (19:19→19:24)
--- NOTE | 2019-12-19 20:10 | REP ---
Two views right knee: 12/19/2019. Indication: Postoperative assessment. Findings: The patient is status post immediate postoperative total knee arthroplasties sequelae. The surgical hardware appears intact and well seated. No lytic or blastic lesions are present. Postoperative soft tissue sequelae are noted. Impression: Expected postoperative sequelae of following total right knee arthroplasty. Electronically Signed by Kendrick Chirinos DO 12/19/2019 08:01 P
[2019-12-19 20:46] VITALS: BP 132/69
[2019-12-19 21:30] VITALS: BP 132/68
[2019-12-19 22:30] VITALS: BP 134/68
[2019-12-19] MEDS: levETIRAcetam **XR** 500 MG TABLET PO SCH (23:19)
[2019-12-19] MEDS: EZETIMIBE 10 MG TAB (ZETIA) PO SCH (23:19)
[2019-12-19] MEDS: PERCOCET 5MG/325MG TAB PO PRN (23:20)
[2019-12-19] MEDS: ceFAZolin SOD 2 GM in IV 1 EA IV SCH (23:20)
[2019-12-19 23:29] VITALS: BP 128/70
[2019-12-20 00:30] VITALS: BP 126/71
[2019-12-20 05:47] VITALS: BP 110/58
[2019-12-20] MEDS: PERCOCET 5MG/325MG TAB PO PRN ×4 (06:03→21:52)
[2019-12-20] MEDS: LEVOTHYROXINE 25MCG TABLET (0.025MG) PO SCH (06:03)
[2019-12-20 07:03] LABS: BASO % 0.1 % (0.0-1.0); HEMATOCRIT 32.2 % (36.0-47.0); HEMOGLOBIN 10.8 g/dl (12.0-15.5); LYMPH # 0.5 10^3/uL (1.5-5.0); LYMPH % 4.9 % (24.0-44.0); MEAN CORPUSCULAR HEMOGLOBIN 29.6 pg (27.0-33.0); MEAN CORPUSCULAR HGB CONC 33.5 g/dl (32.0-36.5); MEAN CORPUSCULAR VOLUME 88.2 fl (80.0-96.0); MONO # 0.7 10^3/uL (0.0-0.8); MONO % 7.2 % (0.0-5.0); NEUTROPHILS # 8.9 10^3/uL (1.5-8.5); NEUTROPHILS % 87.3 % (36.0-66.0); PLATELET COUNT, AUTOMATED 158 10^3/uL (150-450); RED BLOOD COUNT 3.65 10^6/uL (4.00-5.40); WHITE BLOOD COUNT 10.2 10^3/uL (4.0-10.0)
[2019-12-20] MEDS ORDERED: PERC5TAB12 PO (07:23)
[2019-12-20] MEDS ORDERED: PERCOCET 5MG/325MG TAB PO ONE (07:30)
[2019-12-20 07:34] LABS: ALBUMIN 3.3 GM/DL (3.2-5.2); BILIRUBIN,TOTAL 0.6 MG/DL (0.2-1.0); CALCIUM LEVEL 8.5 MG/DL (8.8-10.2); CREATININE FOR GFR 1.33 MG/DL (0.55-1.30); GLOMERULAR FILTRATION RATE 41.4 (>39); MAGNESIUM LEVEL 1.6 MG/DL (1.8-2.4); TOTAL PROTEIN 6.2 GM/DL (6.4-8.2)
[2019-12-20] MEDS: MIRALAX *UNIT DOSE* 17GM PACKET PO SCH (07:58)
[2019-12-20] MEDS: ramipriL 5 MG CAP PO SCH ×3 (07:59→08:15)
[2019-12-20] MEDS: levETIRAcetam **XR** 500 MG TABLET PO SCH ×2 (07:59→21:52)
[2019-12-20] MEDS: MOM 30ML SUSPENSION UDC PO SCH (07:59)
[2019-12-20] MEDS: ASPIRIN 81 MG CHEW TABLET PO SCH (07:59)
[2019-12-20] MEDS: GABAPENTIN 100 MG CAP PO PRN ×2 (08:01→17:08)
[2019-12-20] MEDS: CLOPIDOGREL 75 MG TAB PO SCH (08:01)
[2019-12-20] MEDS: ceFAZolin SOD 2 GM in IV 1 EA IV SCH ×2 (08:02→17:08)
[2019-12-20] MEDS: amLODIPine 5 MG TAB PO SCH ×2 (08:10→08:15)
[2019-12-20 10:00] VITALS: BP 110/58
[2019-12-20] MEDS ORDERED: MAG SULF 1GM/100ML (MAG RUN) 1 GM in IV 1 EA IV ONE (11:00)
--- NOTE | 2019-12-20 11:21 | IPNPDOC ---
Text Note Date of Service The patient was seen on 12/20/19. NOTE Subjective: Patient is a 74 year old female with a PMHx of HTN, DLP, Hypothyroidism, Seasonal allergies, Seizures History, GERD who presented to [facility] for an elective orthopedic procedure. Patient received medical clearance from Dr. Briscoe, primary care provider. Patient was seen and examined at the bedside. Patient appears to be comfortable, will be working with physical therapy, however , did note that today her pain was uncontrolled. Denies any nausea, vomiting, abdominal pain, diarrhea, or urinary discomfort. Objective: Vitals (See below) General: Lying in bed, appears comfortable, AAOx3 HEENT: NC, AT CVS: +S1S2 Lungs: Fair air entry b/l, -w/r/r Abdomen: Soft, ND, NT Extremities: - Edema, - Calf tenderness Assessment and plan: Elective right knee arthroplasty (POD#1) - Patient has presented to [facility] for an elective procedure with orthopedic surgery - Has received outpatient medical clearance from primary care provider - Pain control, anticoagulation, and physical therapy at the direction of physical therapy HTN - BP controlled - c/w Amlodipine and Ramipril with holding parameters DLP - c/w Ezetimibe Hypothyroidism - c/w Levothyroxine Seasonal allergies - c/w Cetirizine PRN Seizures History - Patient reports last seizure was 2013 - c/w Keppra OA / Neuropathy - c/w Gabapentin GERD - Patient takes calcium carbonate PRN DVT prophylaxis - c/w anticoagulation as per orthopedic surgery Disposition: - c/w PT and OT - Anticipate DC tomorrow VS,Humbertobone, I+O VS, Fishbone, I+O Laboratory Tests 12/20/19 06:43 Vital Signs Date Time Temp Pulse Resp B/P (MAP) Pulse Ox O2 Delivery O2 Flow Rate FiO2 12/20/19 08:15 110/58 12/20/19 08:15 60 12/20/19 08:00 20 Room Air 12/20/19 05:47 98.0 99 12/19/19 15:20 3 I&O- Last 24 Hours up to 6 AM 12/20/19 06:00 Intake Total 1850 ml Output Total 220 ml Balance 1630 ml JEFFREY DENT MD Dec 20, 2019 11:21
[2019-12-20] MEDS ORDERED: PERCOCET 5MG/325MG TAB PO PRN (11:30)
[2019-12-20 14:00] VITALS: BP 86/54
[2019-12-20 18:00] VITALS: BP 109/57
[2019-12-20] MEDS: MORPHINE 15 MG SA TAB PO SCH (18:31)
[2019-12-20] MEDS: EZETIMIBE 10 MG TAB (ZETIA) PO SCH (21:51)
[2019-12-20 22:00] VITALS: BP 117/59
[2019-12-21] MEDS: LEVOTHYROXINE 25MCG TABLET (0.025MG) PO SCH (05:40)
[2019-12-21] MEDS: PERCOCET 5MG/325MG TAB PO PRN ×2 (05:40→11:13)
[2019-12-21 06:00] VITALS: BP 137/63
[2019-12-21] MEDS ORDERED: MS C15TA8 PO (06:13)
[2019-12-21] MEDS: MOM 30ML SUSPENSION UDC PO SCH (08:05)
[2019-12-21] MEDS: MIRALAX *UNIT DOSE* 17GM PACKET PO SCH (08:05)
[2019-12-21] MEDS: MORPHINE 15 MG SA TAB PO SCH (08:06)
[2019-12-21] MEDS: levETIRAcetam **XR** 500 MG TABLET PO SCH (08:06)
[2019-12-21 08:07] VITALS: BP 137/63
[2019-12-21] MEDS: ASPIRIN 81 MG CHEW TABLET PO SCH (08:07)
[2019-12-21] MEDS: amLODIPine 5 MG TAB PO SCH (08:07)
[2019-12-21] MEDS: ramipriL 5 MG CAP PO SCH (08:07)
[2019-12-21] MEDS: CLOPIDOGREL 75 MG TAB PO SCH (08:09)
[2019-12-21 08:28] LABS: BASO % 0.1 % (0.0-1.0); EOS % 0.1 % (0.0-3.0); HEMATOCRIT 30.7 % (36.0-47.0); HEMOGLOBIN 10.2 g/dl (12.0-15.5); LYMPH # 0.9 10^3/uL (1.5-5.0); LYMPH % 10.3 % (24.0-44.0); MEAN CORPUSCULAR HEMOGLOBIN 29.4 pg (27.0-33.0); MEAN CORPUSCULAR HGB CONC 33.2 g/dl (32.0-36.5); MEAN CORPUSCULAR VOLUME 88.5 fl (80.0-96.0); MONO # 1.1 10^3/uL (0.0-0.8); MONO % 12.4 % (0.0-5.0); NEUTROPHILS # 6.6 10^3/uL (1.5-8.5); NEUTROPHILS % 76.8 % (36.0-66.0); PLATELET COUNT, AUTOMATED 141 10^3/uL (150-450); RED BLOOD COUNT 3.47 10^6/uL (4.00-5.40); WHITE BLOOD COUNT 8.7 10^3/uL (4.0-10.0)
[2019-12-21 09:01] LABS: BILIRUBIN,TOTAL 0.6 MG/DL (0.2-1.0); CALCIUM LEVEL 7.8 MG/DL (8.8-10.2); CREATININE FOR GFR 1.1 MG/DL (0.55-1.30); GLOMERULAR FILTRATION RATE 51.5 (>39); MAGNESIUM LEVEL 1.9 MG/DL (1.8-2.4); POTASSIUM SERUM 3.8 MEQ/L (3.5-5.1); TOTAL PROTEIN 5.8 GM/DL (6.4-8.2)
[2019-12-21 10:00] VITALS: BP 132/65
--- NOTE | 2019-12-21 10:25 | IPNPDOC ---
Text Note Date of Service The patient was seen on 12/21/19. NOTE Subjective: Patient is a 74 year old female with a PMHx of HTN, DLP, Hypothyroidism, Seasonal allergies, Seizures History, GERD who presented to [facility] for an elective orthopedic procedure. Patient received medical clearance from Dr. Briscoe, primary care provider. Patient was seen and examined at the bedside. Patient reported that she still experiencing right leg pain. Denies any chest pain, shortness of breath or palpitations. Denies nausea, vomiting, abdominal pain, diarrhea, or urinary discomfort. Patient will continue to work with physical therapy until she is cleared for discharge. Objective: Vitals (See below) General: Lying in bed, remains comfortable in bed, is awake, alert and oriented 3 HEENT: NC, AT CVS: +S1S2 Lungs: Fair air entry b/l, no appreciable wheezing, rhonchi or crackles Abdomen: Soft, nondistended and nontender Extremities: Large tremors are free of any edema, - Calf tenderness Assessment and plan: Elective right knee arthroplasty (POD#2) - Patient has presented to [facility] for an elective procedure with orthopedic surgery - Has received outpatient medical clearance from primary care provider - Pain control, anticoagulation, and physical therapy at the direction of physical therapy HTN - BP controlled - c/w Amlodipine and Ramipril with holding parameters DLP - c/w Ezetimibe Hypothyroidism - c/w Levothyroxine Seasonal allergies - c/w Cetirizine PRN Seizures History - Patient reports last seizure was 2013 - c/w Keppra OA / Neuropathy - c/w Gabapentin GERD - Patient takes calcium carbonate PRN DVT prophylaxis - c/w anticoagulation as per orthopedic surgery Disposition: - c/w PT and OT; has yet to clear VS,Fishbone, I+O VS, Fishbone, I+O Laboratory Tests 12/21/19 08:05 Vital Signs Date Time Temp Pulse Resp B/P (MAP) Pulse Ox O2 Delivery O2 Flow Rate FiO2 12/21/19 08:07 137/63 12/21/19 08:07 69 12/21/19 08:06 18 Room Air 12/21/19 06:00 98.1 95 12/19/19 15:20 3 I&O- Last 24 Hours up to 6 AM 12/21/19 06:00 Intake Total 2060 ml Output Total 500 ml Balance 1560 ml JEFFREY DENT MD Dec 21, 2019 10:25
--- NOTE | 2019-12-24 17:35 | DSES ---
DATE OF ADMISSION: 12/19/2019 DATE OF DISCHARGE: 12/21/2019 HISTORY OF PRESENT ILLNESS: Patricia is a pleasant 74-year-old female with progressively worsening right knee pain and stiffness. She consented for a right total knee arthroplasty per Dr. Santosh Tolbert. Her medical optimization was completed by Dr. Briscoe. X-rays were consistent with advanced osteoarthritis. OPERATION PERFORMED: Right total knee arthroplasty. HOSPITAL COURSE: The patient uneventfully underwent right total knee arthroplasty under spinal and MAC anesthesia. The patient tolerated the procedure well and was returned to recovery comfortable. Our hospital team felt the patient was ready for discharge on 12/21/2019 with the following instructions. Weightbearing as tolerated with walker, Percocet as needed for pain, diet is regular, ODALYS stockings wear times 30 days with anticoagulation per protocol. INSTRUCTIONS: Optifoam dressing change in 3-4 days time. The patient will followup with the orthopedic group 12-14 days for wound check, staple removal. She is encouraged to contact our office sooner with increased pain, numbness, tingling, drainage, bleeding, fever greater than 101 or any further concerns.
== END 2019-12-21 12:25 | disposition home or self-care (01) | DRG 470 ==
LOC: M OR 10:33 → M MS5PR 18:40
PROVIDERS: ADMIT Orthopaedic Surgery; ATTEND Orthopaedic Surgery
PROC: 0SRC0J9 Replacement of Right Knee Joint with Synthetic Substitute, Cemented, Open Approach (ICD-10-PCS; principal; 2019-12-19 14:45)
DX: M17.11 Unilateral primary osteoarthritis, right knee (principal); Z11.59 Encounter for screening for other viral diseases; E78.5 Hyperlipidemia, unspecified; I10 Essential (primary) hypertension; K21.9 Gastro-esophageal reflux disease without esophagitis; E03.9 Hypothyroidism, unspecified; Z96.652 Presence of left artificial knee joint; Z79.82 Long term (current) use of aspirin; Z79.899 Other long term (current) drug therapy; Z87.891 Personal history of nicotine dependence; G62.9 Polyneuropathy, unspecified; Z88.2 Allergy status to sulfonamides; Z88.5 Allergy status to narcotic agent; Z88.8 Allergy status to other drugs, medicaments and biological substances; Z88.6 Allergy status to analgesic agent; G40.909 Epilepsy, unspecified, not intractable, without status epilepticus

== ENCOUNTER → 2020-01-03 | Outpatient (CLI) | payer MEDICARE, OTHER ==
[~2020-01-03] MED LIST changes: -ACETAMINOPHEN 500 MG TAB PO ONE; -ASPI81TA85 PO; +ASPI81TA86 PO; -LIDOCAINE 1% MDV 20ML VIAL SQ PRN; -LR 1,000 ML IV ONE; -MIDAZOLAM INJ 2MG/2ML VIAL (J2250 PER 1MG) IV SCH; +MS C15TA8 PO; +PERC5TAB12 PO; -ceFAZolin SOD 2 GM in IV 1 EA IV ONE
--- NOTE | 2020-01-03 10:49 | REP ---
Clinical: Right wrist pain and swelling. Technique: AP, lateral, bilateral oblique views of the right wrist. Findings: Moderate osteoarthritic degenerative changes include cortical irregularity, subchondral sclerosis and joint space narrowing primarily involving the first and second carpometacarpal joints as well as the radiocarpal line. Moderate chondrocalcinosis along the radiocarpal joint and within the prestyloid recess is also appreciated. No acute fracture or dislocation. Impression: Moderate osteoarthritic degenerative changes including elements of chondrocalcinosis and soft tissue swelling. Electronically Signed by Rajendra Raymundo MD 01/03/2020 10:39 A
--- NOTE | 2020-01-03 10:50 | REP ---
Clinical: Pain. Technique: AP, lateral, bilateral oblique views of the right hand. Findings: Moderate to significant osteoarthritic degenerative changes primarily involving the interphalangeal joints and specifically the 3-5th proximal interphalangeal joints. Findings include gull-wing deformities, subchondral heterogeneity and subtle cystic changes, marginal spurring/osteophytosis and periarticular soft tissue swelling. No acute fracture dislocation. Moderate arthritic degenerative changes are also noted through the wrist including elements of chondrocalcinosis in the radiocarpal joint space and pre-styloid space. Impression: Moderate to early significant osteoarthritic degenerative changes. Electronically Signed by Rajendra Raymundo MD 01/03/2020 10:42 A
== END ==
LOC: M LRY 09:56
PROVIDERS: ATTEND Family Medicine
DX: M19.041 Primary osteoarthritis, right hand (principal); M19.031 Primary osteoarthritis, right wrist
CPT/HCPCS: 73110; 73130; G0463

== ENCOUNTER → 2020-04-21 | Outpatient (CLI) | payer MEDICARE, OTHER ==
[2020-04-21 10:31] LABS: BASO % 0.7 % (0.0-1.0); EOS # 0.1 10^3/uL (0.0-0.5); EOS % 1.6 % (0.0-3.0); HEMATOCRIT 35.5 % (36.0-47.0); HEMOGLOBIN 11.4 g/dl (12.0-15.5); LYMPH # 1.2 10^3/uL (1.5-5.0); LYMPH % 27.8 % (24.0-44.0); MEAN CORPUSCULAR HEMOGLOBIN 28.6 pg (27.0-33.0); MEAN CORPUSCULAR HGB CONC 32.1 g/dl (32.0-36.5); MONO # 0.5 10^3/uL (0.0-0.8); MONO % 10.7 % (0.0-5.0); NEUTROPHILS # 2.5 10^3/uL (1.5-8.5); PLATELET COUNT, AUTOMATED 189 10^3/uL (150-450); RED BLOOD COUNT 3.99 10^6/uL (4.00-5.40); WHITE BLOOD COUNT 4.3 10^3/uL (4.0-10.0)
[2020-04-21 11:28] LABS: CALCIUM LEVEL 9.5 MG/DL (8.8-10.2); CHOLESTEROL RISK RATIO 2.732 (<5); CREATININE FOR GFR 1.04 MG/DL (0.55-1.30); POTASSIUM SERUM 4.2 MEQ/L (3.5-5.1); THYROID STIMULATING HORMONE 1.63 uIU/ML (0.358-3.740)
== END ==
LOC: M WUC 08:46
PROVIDERS: ATTEND Family Medicine
DX: E78.5 Hyperlipidemia, unspecified (principal); E03.9 Hypothyroidism, unspecified

== ENCOUNTER → 2020-08-07 | Outpatient (CLI) | payer SELFPAY | LOC: M LABSMTC 12:42 | PROVIDERS: ATTEND Pediatrics | DX: Z11.52 Encounter for screening for COVID-19 (principal) ==

== ENCOUNTER → 2020-08-15 | Outpatient (CLI) | payer MEDICARE, OTHER ==
--- NOTE | 2020-08-15 10:23 | REPMRS ---
Patient History The patient states she has not had a clinical breast exam in over a year. Patient is postmenopausal. Family history of prostate cancer at age 50 or over in paternal uncle, premenopausal breast cancer at age 50 or over in sister, colorectal cancer under age 50 in paternal cousin, colorectal cancer at age 50 or over in paternal cousin. Benign lumpectomy of the right breast. No Hormone Replacement Therapy 3D TOMOSYNTHESIS WAS PERFORMED. [facility] lifetime risk for breast cancer is 3.9%. Volpara breast density c. Digital Woman Screen Mammo: August 15, 2020 - Exam #: [id number] Bilateral CC and MLO view(s) were taken. Technologist: Galina Ch, Technologist Prior study comparison: November 23, 2018, bilateral digital woman screen mammo performed at [facility]. April 29, 2016, digital woman screen mammo performed at [facility]. FINDINGS: The breast tissue is heterogeneously dense. This may lower the sensitivity of mammography. There has been no change in the appearance of the mammogram from the prior studies. There is a moderate amount of residual fibroglandular tissue which is fairly symmetric. There is no interval development of dominant mass, areas of architectural distortion, or clustered microcalcification typical of malignancy. Assessment: BI-RADS/ACR category 1 mammogram. Negative Mammogram. Recommendation Routine screening mammogram in 1 year (for women over age 40). This mammogram was interpreted with the aid of an FDA-approved computer-aided dectection system. Electronically Signed By: Saran Zhao MD 08/15/20 [id number]
== END ==
LOC: M WHC 09:17
PROVIDERS: ATTEND Family Medicine
DX: Z12.31 Encounter for screening mammogram for malignant neoplasm of breast (principal)

== ENCOUNTER → 2021-11-26 | Outpatient (CLI) | payer MEDICARE, OTHER | LOC: M WHC 13:58 | PROVIDERS: ATTEND Family Medicine | DX: Z12.31 Encounter for screening mammogram for malignant neoplasm of breast (principal) ==

== ENCOUNTER 2023-06-24 13:36 | Emergency (ER) | payer MEDICARE, OTHER ==
[~2023-06-24 13:36] MED LIST changes: +EZET10TA58 PO; -ZETI10TA16 PO
[2023-06-24] MEDS ORDERED: LORazepam 2 MG/ML 1ML VIAL IV PRN (13:40)
[2023-06-24] MEDS ORDERED: levETIRAcetam INJection 1,000 MG in D5W 100 ML IV ONE (13:45)
[2023-06-24 14:46] LABS: BASO % 0.4 % (0.0-1.0); EOS # 0.1 10^3/uL (0.0-0.5); EOS % 0.6 % (0.0-3.0); HEMATOCRIT 42.4 % (36.0-47.0); HEMOGLOBIN 13.4 g/dl (12.0-15.5); LYMPH # 3.9 10^3/uL (1.5-5.0); LYMPH % 38.7 % (24.0-44.0); MEAN CORPUSCULAR HGB CONC 31.6 g/dl (32.0-36.5); MEAN CORPUSCULAR VOLUME 95.1 fl (80.0-96.0); MONO % 9.7 % (2.0-8.0); NEUTROPHILS # 5.1 10^3/uL (1.5-8.5); NEUTROPHILS % 50.4 % (36.0-66.0); PLATELET COUNT, AUTOMATED 228 10^3/uL (150-450); RED BLOOD COUNT 4.46 10^6/uL (4.00-5.40); WHITE BLOOD COUNT 10.1 10^3/uL (4.0-10.0)
[2023-06-24 15:07] LABS: ALBUMIN 4.5 G/DL (3.2-5.2); BILIRUBIN,DIRECT 0.3 MG/DL (<0.4); BILIRUBIN,TOTAL 1.2 MG/DL (0.3-1.2); CREATININE FOR GFR 1.13 MG/DL (0.55-1.30); GLOMERULAR FILTRATION RATE 49.6 (>39); MAGNESIUM LEVEL 2.1 MG/DL (1.8-2.4); POTASSIUM SERUM 3.6 MMOL/L (3.5-5.1); TOTAL PROTEIN 7.5 G/DL (5.7-8.2)
[2023-06-24] MEDS ORDERED: NS 1,000 ML IV ONE (15:10)
[2023-06-24 15:13] LABS: RSV AMPLIFICATION NEGATIVE (NEGATIVE)
[2023-06-24] MEDS ORDERED: ACETAMINOPHEN 325 MG TAB PO ONE (15:20)
[2023-06-24] MEDS ORDERED: KEPP500T13 PO (21:05)
[2023-06-24 21:15] VITALS: BP 133/64; TEMP 98.2; O2SAT 98
== END 2023-06-24 21:45 | disposition home or self-care (01) ==
LOC: M ED 13:36
DX: G40.909 Epilepsy, unspecified, not intractable, without status epilepticus (principal); K21.9 Gastro-esophageal reflux disease without esophagitis; I10 Essential (primary) hypertension; Z86.79 Personal history of other diseases of the circulatory system; Z88.2 Allergy status to sulfonamides; Z88.5 Allergy status to narcotic agent; Z88.6 Allergy status to analgesic agent; Z88.8 Allergy status to other drugs, medicaments and biological substances; Z79.82 Long term (current) use of aspirin; Z79.83 Long term (current) use of bisphosphonates; Z79.811 Long term (current) use of aromatase inhibitors; Z79.899 Other long term (current) drug therapy
CPT/HCPCS: 70450; 73140; 80048; 80076; 80180; 83605; 83735; 85025; 87631; 93041; 94760; 96361; 96365; 99285; J1953

== ENCOUNTER 2024-03-17 12:09 | Emergency (ER) | payer MEDICARE, OTHER ==
[~2024-03-17] VITALS: Ht 170.2 cm; Wt 73.1 kg
[~2024-03-17 12:09] MED LIST changes: -RAMI1CAP24 PO; +RAMI5CAP60 PO
[2024-03-17] MEDS ORDERED: LEVE500T88 PO (13:15)
[2024-03-17 15:30] VITALS: BP 132/64; TEMP 97.6; O2SAT 98
== END 2024-03-17 15:36 | disposition home or self-care (01) ==
LOC: M ED 12:09
DX: U07.1 COVID-19 (principal); I10 Essential (primary) hypertension; K57.92 Diverticulitis of intestine, part unspecified, without perforation or abscess without bleeding; G40.909 Epilepsy, unspecified, not intractable, without status epilepticus; Z88.2 Allergy status to sulfonamides; Z88.5 Allergy status to narcotic agent; Z88.6 Allergy status to analgesic agent; Z88.8 Allergy status to other drugs, medicaments and biological substances; Z79.82 Long term (current) use of aspirin; Z79.899 Other long term (current) drug therapy